=== PATIENT | male | born 1940 | race Caucasian/White ===

== ENCOUNTER → 2021-09-11 | Outpatient (CLI) | payer MEDICARE, OTHER ==
--- NOTE | 2021-09-14 12:12 | PE ---
EXAMINATION TYPE: PET CT fusion skull to thigh DATE OF EXAM: 09/11/2021 COMPARISON: Outside CT abdomen and pelvis September 01, 2021 HISTORY: Newly diagnosed colon cancer on rectal biopsy during colonoscopy August 24, [address], liver lesions. TECHNIQUE: Following the intravenous administration of 9.25 mCi of F-18 FDG, whole body images are p erformed from the skull base to the midthigh. Images are reviewed on the computer in the coronal, ax ial, and sagittal planes. Reconstructed rotating images are created on independent workstation and r eviewed on the computer. A localization and attenuation correction CT is performed in conjunction w ith the PET scan. Blood glucose level equals 74. SCAN: Initial Scan FINDINGS: SKULL BASE AND NECK: No areas of abnormal hypermetabolic uptake. CHEST, MEDIASTINUM, AND HILAR REGION: There is nodule or more likely nodular consolidation measuring 2.5 x 2.1 cm axial image 94 with surrounding groundglass opacity in the left mid lung anteriorly. Pos tinfectious or inflammatory etiology suspected. Correlate clinically. No areas of abnormal hypermetabolic uptake. ABDOMEN AND PELVIS: Abnormal hypermetabolic uptake in the upper rectum axial image 212 has max SUV of 12.27. Some misregistration artifact at level of the prostate and bladder are present. Normal excretion in t he distal ureters and bladder noted. Corresponding to recent CT there are abnormal hypermetabolic hepatic lesions estimated 6-10 distinct lesions, largest left hepatic lobe axial image 130 measures 3.5 cm long axis with max SUV of 8.58. No additional areas of abnormal hypermetabolic uptake. OSSEOUS STRUCTURES: No areas of abnormal hypermetabolic uptake. OTHER CT: Right subclavian Mediport catheter has tip terminating in SVC. 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 Mild cardiomegaly. Large dependent calcified gallstone. There is 3.7 cm thin-walled exophytic cyst posteriorly right kid shell axial image 151. Moderate calcified plaque infrarenal abdominal aorta extends into branch vessels . Enlarged prostate consistent with BPH. IMPRESSION: Demonstration of known new rectal carcinoma. 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
== END | disposition home or self-care (01) ==
LOC: RADPETMAIN 14:51
PROVIDERS: ATTEND Internal Medicine Hematology & Oncology
DX: C20 Malignant neoplasm of rectum (principal); C78.7 Secondary malignant neoplasm of liver and intrahepatic bile duct
CPT/HCPCS: 78815; A9552